=== PATIENT | female | born 1960 | race Caucasian/White ===

== ENCOUNTER 2018-03-15 11:27 | Emergency (ER) | payer OTHER ==
--- NOTE | 2018-03-15 13:26 | EDPHY ---
H & P Time Seen by Provider: 03/15/18 11:58 HPI/ROS: This patient complains of back pain left lumbar paraspinous occasionally radiating down her posterior thigh for 2 weeks now since caring heavy bag age while traveling 2 weeks ago. She did remember any acute injury while caring a baggage but the next day awakened with low back pain. Since that time she saw her primary care physician initially due to associated pain inguinal region with an examination that ruled out hernia on March 04. She was sent to physical therapy starting week ago and is gone 2 times. She reports mild improvement but persistent symptoms and is about to travel to [facility] in a few days so wanted to have further evaluation. Specifically, she requests radiographic imaging. She describes the current pain is achy in nature 3/10 intensity. The pain worsens with walking or if she is seated for long periods of time. She had some difficulty sleeping due to the pain. She reports mild improvement from NSAIDs and no other exacerbating factors. ROS: Constitutional: No fevers or chills. No malaise. Neuro: No numbness tingling focal weakness, bowel or bladder incontinence. : No hematuria. No dysuria. GI: No associated abdominal pain. No nausea vomiting. Past Medical/Surgical History: Otherwise healthy Smoking Status: Former smoker Physical Exam: General Appearance: Alert, no distress. Eyes: Pupils equal and round no pallor or injection. ENT, Mouth: Mucous membranes moist. Respiratory: There are no retractions, lungs are clear to auscultation. Cardiovascular: Regular rate and rhythm. No murmur gallop rub. Gastrointestinal: Abdomen is soft and nontender, no masses, bowel sounds normal. Back: Patient has left lumbar paraspinous tenderness with evidence of muscle spasm. No significant midline tenderness. Straight leg raise is negative bilaterally. She has limitation and back extension but is able to flex forward and touch her toes. Neurological: GCS 15. She maintains normal light touch sensory exam and lower extremities and saddle area. She maintains 2+ symmetric patellar and Achilles DTRs bilaterally. She has 5/5 strength in great toe dorsiflexion and plantar flexion bilaterally. Skin: Warm and dry, no rashes. Extremities are symmetrical, full range of motion. Psychiatric: Mood and affect normal DIFFERENTIAL DIAGNOSIS: After history and physical exam differential diagnosis was considered for low back strain, sciatica, discogenic disease, pathologic fracture, other bony abnormalities, degenerative disc disease Constitutional: Initial Vital Signs Temperature (C) 36.5 C 03/15/18 11:32 Heart Rate 103 H 03/15/18 11:32 Respiratory Rate 16 03/15/18 11:32 Blood Pressure 118/76 03/15/18 11:32 O2 Sat (%) 95 03/15/18 11:32 O2 Delivery Mode Room Air Allergies/Adverse Reactions: erythromycin base [Erythromycin Base] Allergy (Verified 03/15/18 11:36) Penicillins Allergy (Verified 03/15/18 11:36) Home Medications: Medication Instructions Recorded Margie Allergy 03/15/18 Lidocaine [Lidoderm] 1 each TP DAILY #15 adh..patch 03/15/18 Methocarbamol [Robaxin 750 mg (*)] 750 - 1,500 mg PO QID PRN #30 tab 03/15/18 Naproxen 03/15/18 traMADol [Ultram 50 mg (*)] 50 - 100 mg PO Q4 PRN #20 tab 03/15/18 MDM/Departure - MDM Diagnostics: Three-view back [id number]: Scoliosis consistent with muscle spasm by my interpretation. Otherwise normal. Imaging: I viewed and interpreted images myself ED Course/Re-evaluation: Discussion: Patient's findings are consistent with low back strain. I counseled her regarding this. Will plan to treat her with a combination of continuing NSAIDs, methocarbamol, lidocaine patches and tramadol for breakthrough pain. I also demonstrated stretches that may assist in her healing. Answered all of her questions prior to discharge. There is no red flag findings that would suggest radiculopathy, cauda equina or other concerning findings. However patient understands need to return emergency department should she develop any worsening symptoms despite treatment plan - Depart Disposition: Home, Routine, Self-Care Clinical Impression: Low back strain Qualifiers: Encounter type: initial encounter Qualified Code(s): S39.012A - Strain of muscle, fascia and tendon of lower back, initial encounter Condition: Good Instructions: Low Back Strain (ED) Additional Instructions: DX: Low back strain Plan: Ibuprofen 400-600 mg per 6 hours regularly for the next or Aleve as needed. Methocarbamol muscle relaxants as needed and Lidoderm patches as needed Tylenol in addition as needed for pain not to exceed 3000 mg in 24 hr Starts daily stretches prior to taking muscle relaxants and Vicodin in the morning. 3-5 minutes each of: "Butterfly stretch," "Sphinx stretch", "pigeon stretch", and hamstring stretch. Avoid lifting more than 5-10 pounds until symptoms improve. Call your primary care physician for a followup appointment in 3-7 days. Go to the emergency department for worsening of your symptoms despite the treatment plan. Prescriptions: Lidocaine [Lidoderm] 1 each TP DAILY #15 adh..patch Methocarbamol [Robaxin 750 mg (*)] 750 - 1,500 mg PO QID PRN #30 tab PRN Reason: Muscle Spasms traMADol [Ultram 50 mg (*)] 50 - 100 mg PO Q4 PRN #20 tab PRN Reason: breakthrough pain Referrals: Marine Tellez MD [Primary Care Provider] - As per Instructions
[2018-03-15 13:46] VITALS: BP 110/83
== END 2018-03-15 13:47 | disposition home or self-care (01) ==
LOC: CED 11:27
DX: S39.012A Strain of muscle, fascia and tendon of lower back, initial encounter (principal); Z87.891 Personal history of nicotine dependence; X58.XXXA Exposure to other specified factors, initial encounter
CPT/HCPCS: 72100-PO

== ENCOUNTER → 2018-10-05 | Outpatient (CLI) | payer OTHER | LOC: BMCIMAGING 13:45 | PROVIDERS: ATTEND Internal Medicine | DX: Z13.820 Encounter for screening for osteoporosis (principal); M81.0 Age-related osteoporosis without current pathological fracture; Z78.0 Asymptomatic menopausal state ==